=== PATIENT | female | born 1950 | race Caucasian/White ===

== ENCOUNTER 2023-11-18 09:19 | Emergency (ER) | payer MEDICARE, BC | END 2023-11-18 11:58 | disposition home or self-care (01) | LOC: DL.ED 09:19 | DX: U07.1 COVID-19 (principal); E11.9 Type 2 diabetes mellitus without complications; Z88.5 Allergy status to narcotic agent | CPT/HCPCS: 71046; 87081; 87430; 87804; 99283; U0002 ==